=== PATIENT | male | born 1940 | race Caucasian/White ===

== ENCOUNTER 2017-02-13 10:32 | Emergency (ER) | payer OTHER ==
[~2017-02-13] VITALS: Ht 167.6 cm; Wt 78.5 kg
[~2017-02-13 10:32] MED LIST: ASPI81CH8 PO; FINA5TAB PO; LSN5 PO; METO1TAB31 PO; MULT-506 PO; NTRGSL/4 UT; OMEG-112 PO; OMEP20CA9 PO; benadryl
[2017-02-13 10:47] VITALS: TEMP 37; Ht 167.6 cm; Wt 78.5 kg
[2017-02-13] MEDS ORDERED: RANITIDINE HCL 150 MG TAB PO ONE (13:00)
[2017-02-13 13:45] VITALS: BP 157/93; PULSE 59; O2SAT 96
[2017-02-13] MEDS ORDERED: PRED20TA2 PO (13:47)
--- NOTE | 2017-02-15 16:22 | EMERGENCY ROOM VISIT NOTE ---
ED Visit Note First contact with patient: 12:22 Chief Complaint: Itchy rash. History of Present Illness: Mr. Davis is a 76-year-old white male who ambulates into the ED accompanied by his complaining of an itchy rash. Historically patient reports he recently had an abdominal CAT scan with contrast approximately 8 days ago. Patient reports yesterday morning he noted a rash on his legs and since then the rash has spread to his back and abdomen. He contacted his primary care provider who encouraged him to come to the ED for further evaluation and care. Patient reports the rash appeared overnight. He has not identified any aggravating or alleviating factors related to the rash. He reports the rash is itchy. Yesterday he reports taking 1 dose of 50 mg of Benadryl and having mild relief of the itching but it subsequently returned. He has no associated symptoms with his rash including headache, dizziness, lightheadedness, sensations of throat swelling, upper respiratory tract symptoms, cough, wheezing , shortness of breath, abdominal pain, nausea/vomiting, joint pains, fevers, chills. Review of Systems: As noted above in history of present illness. All body systems were reviewed and found to be negative as noted above. Past Medical History: Coronary artery disease with 2 heart attacks, CABG and stent placement, hypertension, unspecified stomach disorder and prostrate cancer. Current Medications: Medications Dose Route/Sig Max Daily Dose Days Date Category Dose Instructions Multivitamin (Multivitamins) Tab 1 Tab PO DAILY 11/30/16 Reported Nitrostat (Nitroglycerin) 0.4 Mg Tab 0.4 Mg UT PRN 11/30/16 Reported Prilosec (Omeprazole) 20 Mg Cap 20 Mg PO DAILY 07/27/14 Reported Lisinopril 5 Mg Tab 5 Mg PO DAILY 07/27/14 Reported [place]-3 (Yzxgf-0-Yvyy Ethyl Esters) 1 Cap Cap 2 Cap PO BID 07/27/14 Reported Toprol Xl (Metoprolol Succinate) 25 Mg Tab 25 Mg PO DAILY 07/27/14 Reported Chewable Aspirin (Aspirin) 81 Mg Chw 81 Mg PO DAILY 12/04/09 Reported Proscar (Finasteride) 5 Mg Tab 5 Mg PO DAILY 12/04/09 Reported Allergies to Medications: Crestor. Social History: Patient is not employed; he lives with his and feels safe in his home environment; he denies tobacco and alcohol use. Physical Examination: Vital Signs: Date Time Temp Pulse Resp B/P (MAP) Pulse Ox O2 Delivery O2 Flow Rate FiO2 02/13/17 13:45 59 20 157/93 96 Room Air 02/13/17 12:04 52 18 155/78 95 Room Air 02/13/17 10:47 37.0 60 16 140/83 93 Room Air GENERAL: 76-year-old male in no acute distress, nontoxic-appearing, afebrile and hemodynamically stable. NEUROLOGICAL: Awake, alert and oriented to person, place and time. Answering questions appropriately and following commands. Normal gait. Good hand eye coordination. No focal motor sensory deficits. SKIN: Warm, dry and pink. Over the abdomen, chest, back and upper lower extremities patient has a large diffuse area of hives. HEENT: Atraumatic and normocephalic. PERRLA. Sclera white and conjunctiva pink. No drainage from naris. Oral cavity moist and pink. Pharynx is nonerythematous or edematous. Airway patent. Speech normal. No lymphadenopathy. Trachea midline. No jugular venous distention. BACK: No tenderness over the bony spine. No CVA tenderness. THORAX: Lungs sounds are clear to auscultation and equal bilaterally with symmetrical chest wall. No wheezing, rales or rhonchi. No crepitus, tenderness , subcutaneous air or deformities noted. HEART: Regular rate and rhythm. No gallops, rubs or murmurs are appreciated. ABDOMEN: Flat, soft and nontender. Positive bowel sounds in all quadrants. No guarding, rigidity or organomegaly. EXTREMITIES: Moves all extremities well on command and with purpose. All distal neurovascular statuses are intact and equal bilaterally. No calf tenderness or cords. ED Course: Patient is assessed as noted above. Patient was given oral dose of 60 mg of prednisone, 50 mg of Benadryl and 150 mg of ranitidine. Patient was observed and started having decreasing sensations of itching and the hives on his abdomen were starting to resolve. Patient's case was reviewed with Dr. Conklin we agreed on diagnostic approach, treatment, disposition and plan. Patient was educated about today's findings and instructed on his treatment plan ; he verbalized understanding and agreement with this plan. Clinical Impression: Hives. Disposition: Patient discharged home in stable condition accompanied by his ; prior to departure he was reassessed and subjectively reported he was feeling better. Plan: Patient was prescribed for additional days of 60 mg of prednisone once a day. Patient was encouraged to use [id number] Benadryl 50 mg every 6 hours and ranitidine 50 mg every 12 hours until resolution of all hives and itching. Patient was encouraged to avoid hot showers/past. Patient was encouraged to follow-up with his family physician for recheck in 3- 4 days and possible referral to rattling machine tender. Patient was encouraged return to the ED for worsening hives, any sensations of throat swelling, sensations or shortness of breath/wheezing or any new/ concerning symptoms.
--- NOTE | 2017-02-15 16:56 | EMERGENCY ROOM VISIT NOTE ---
ED Visit Note First contact with patient: 12:22 I have seen/examined the pt at bedside after discussion with the PA regarding sx presentation and plan of care. Pt well appearing and without complaints. Rash consistent with urticaria and likely allergic reaction. VS stable. Pt with improvement following meds. Discussed f/u, discussion with PCP regarding possible triggers for reaction, symptoms to watch/return for, he and verbalized understanding and were agreeable with plan. No evidence of facial involvement or incr WOB, no stridor/wheezing/tripoding/facial swelling/dysphagia /dyspnea. Rash not consistent with SJS/TEN.
[2017-02-26] MEDS ORDERED: LEUP1INJ15 INJ (19:23)
[2017-02-26] MEDS ORDERED: HYDR-5688 PO (19:25)
[2017-03-19] MEDS ORDERED: TAMS0.4C38 PO (11:04)
== END 2017-02-13 14:00 | disposition home or self-care (01) ==
LOC: C.EDB 10:33 → C.EDC 14:00
DX: L50.9 Urticaria, unspecified (principal); I25.10 Atherosclerotic heart disease of native coronary artery without angina pectoris; I10 Essential (primary) hypertension; I25.2 Old myocardial infarction; Z85.46 Personal history of malignant neoplasm of prostate; Z95.1 Presence of aortocoronary bypass graft; Z98.61 Coronary angioplasty status; Z79.82 Long term (current) use of aspirin; Z79.899 Other long term (current) drug therapy

== ENCOUNTER 2017-02-19 07:20 | Emergency (ER) | payer OTHER ==
[~2017-02-19] VITALS: Ht 167.6 cm; Wt 78.3 kg
[~2017-02-19 07:20] MED LIST changes: +PRED20TA2 PO; -benadryl
[2017-02-19 07:23] VITALS: TEMP 36.7; Ht 167.6 cm; Wt 78.3 kg
[2017-02-19] MEDS ORDERED: MoRPHine SULFATE 4 MG/ML 1 ML CARP\\VIAL IV STA (07:38)
[2017-02-19] MEDS ORDERED: SODIUM CHLORIDE 0.9% 1000ML 1,000 ML IV STA (07:38)
[2017-02-19 07:54] LABS: BASO % 0.1 %; BASO ABS # 0.01 K/uL (0-0.2); COMPLETE YES; EOS % 0.1 %; HEMATOCRIT 46.8 % (42-52); IG% 0.6 %; LYMPH % 12.1 %; LYMPH ABS # 2.09 K/uL (1.2-3.4); MEAN CELL VOLUME 88.3 fL (80-100); MEAN CORPUSCULAR HEMOGLOBIN 31.3 pg (25-34); MEAN CORPUSCULAR HGB CONC 35.5 g/dl (32-36); MEAN PLATELET VOLUME 9.5 fL (7.4-10.4); MONO % 8.7 %; NEUT % 78.4 %; PLATELET COUNT 300 K/uL (130-400); WHITE BLOOD COUNT 17.24 K/uL (4.8-10.8)
[2017-02-19 08:06] LABS: PROTHROMBIN TIME (PATIENT) 11.1 SECONDS (9.0-12.0)
[2017-02-19 08:11] LABS: BUN/CREATININE RATIO 20.1 (10-20); CALCIUM 9.5 mg/dl (8.5-10.1); CREATININE 1.5 mg/dl (0.60-1.40); POTASSIUM 4.1 mmol/L (3.5-5.1)
[2017-02-19 08:13] LABS: URINE APPEARANCE CLEAR (CLEAR); URINE BILIRUBIN NEG (NEG); URINE COLOR DK YELLOW; URINE NITRITE NEG (NEG); URINE SPECIFIC GRAVITY 1.032 (1.000-1.030); UROBILINOGEN NEG (NEG)
[2017-02-19 08:14] LABS: ALB/GLOB RATIO 0.9 (0.9-2); MANUAL MICROSCOPIC REQUIRED? NO; REVIEW REQ? NO; ZZUR CULT IF INDIC CLEAN CATCH NO
--- NOTE | 2017-02-19 08:26 | DIAGNOSTIC IMAGING REPORT ---
ABD/PELVIS NO IV OR ORAL CONT HISTORY:76 yearsMalellq pain, radiation into low left back . History of prostate cancer. COMPARISON: CT pelvis 02/05/2017. TECHNIQUE: Multiple axial CT images of the abdomen and pelvis were obtained without IV contrast. FINDINGS: There is minimal dependent atelectasis. 3 mm noncalcified pulmonary nodule is seen within the right middle lobe on image 1 of series 2. Coronary arterial calcifications are seen with prior median sternotomy and CABG. Symmetric bilateral gynecomastia. No gross pneumoperitoneum. There is heterogeneous attenuation of the liver suggesting geographic fatty infiltration. The spleen is diminutive in size. The gallbladder, pancreas and adrenal glands are unremarkable. There are multiple low attenuating lesions of the kidneys bilaterally, right and left measuring up to 2.5 x 3.2 cm suggesting cysts. There is a 4 mm hyperattenuating lesion of the lateral aspect of the interpolar left kidney suggesting hemorrhagic or proteinaceous cyst. Nonspecific perinephric stranding is present bilaterally. There is mild left-sided obstructive uropathy secondary to a 5 x 4 x 5 mm calculus of the proximal left ureter approximately 3.0 cm distal to the ureteropelvic junction. There is asymmetric left greater than right wall thickening of the urinary bladder lumen. Prostatomegaly is again seen with brachytherapy seeds noted. There is asymmetric prominence of the prostate along the left hemipelvis the region of the seminal vesicles which is unchanged finding. There is moderate atherosclerotic plaquing of the abdominal aorta and its branches. No pathologic adenopathy is identified. There is no bowel obstruction. Colonic diverticulosis without diverticulitis noted. The appendix appears normal. The soft tissues are unremarkable. No suspicious lytic or blastic bony lesions are seen. Multilevel degenerative changes of the spine are seen, notably at L5-S1 where there is 11 mm anterolisthesis with remote pars defects at L5-S1. IMPRESSION: 1. Mild left-sided obstructive uropathy secondary to a 5 x 4 x 5 mm calculus of the proximal left ureter. 2. 3 mm noncalcified pulmonary nodule of the right middle lobe. Non-emergent CT of the chest could be conducted to exclude additional noncalcified pulmonary nodules. 3. Unchanged appearance of prostatomegaly with brachytherapy seeds. 4. Additional incidental findings as above include colonic diverticulosis without diverticulitis. The above report was generated using voice recognition software. It may contain grammatical, syntax or spelling errors. Electronically signed by: Kenny Haji 02/19/2017 8:24 AM Dictated Date/Time: 02/19/2017 8:13 AM
[2017-02-19] MEDS ORDERED: TAMSULOSIN HCL 0.4 MG CAP PO ONE (09:00)
[2017-02-19] MEDS ORDERED: TRAMADOL HCL 50 MG TAB PO STA (09:25)
--- NOTE | 2017-02-19 09:32 | EMERGENCY ROOM VISIT NOTE ---
History Report prepared by Shima: Willy Clifford Under the Supervision of: Dr. Dina Conklin D.O. First contact with patient: 07:27 Chief Complaint: ABDOMINAL PAIN Stated Complaint: PAIN ON LEFT SIDE Nursing Triage Summary: triage note: pt reports left lower abd pain since yesterday. History of Present Illness The patient is a 76 year old male who presents to the Emergency Room with complaints of constant lower abdominal pain beginning yesterday. He also complains of pain radiating into his back. He denies any diarrhea, nausea, vomiting, chills, fever, chest pain, SOB, rashes, or bloody stool. The patient states that his pain seems to improve with warm water over the area. He has no history of similar symptoms. The patient was seen in the ED six day ago for an abdominal rash. He states that his rash has completely resolved. He notes that he has a history of prostate cancer, and has been preparing for radiation treatments. Is not currently getting chemotherapy. He has noticed some blood in his urine recently, but attributes this to his prostate. Source of History: patient Onset: Yesterday Position: abdomen (lower) Timing: constant Modifying Factors (Relieving): other (warm water) Associated Symptoms: + back pain, No fevers, No chills, No chest pain, No SOB, No nausea, No vomiting, No hematochezia, No diarrhea, No rash Review of Systems See HPI for pertinent positives & negatives. A total of 10 systems reviewed and were otherwise negative. Past Medical & Surgical Medical Problems: (1) Diarrhea (2) Indigestion (3) Laceration of thumb, left, complicated (4) Prostate cancer Family History No pertinent family history stated. Social History Smoking Status: Never Smoker Drug Use: none Marital Status: Housing Status: lives with family Current/Historical Medications Scheduled Aspirin (Chewable Aspirin), 81 MG PO DAILY Finasteride (Proscar), 5 MG PO DAILY Lisinopril (Lisinopril), 5 MG PO DAILY Metoprolol Succinate (Toprol Xl), 25 MG PO DAILY Multivitamin (Multivitamin), 1 TAB PO DAILY Nitroglycerin (Nitrostat), 0.4 MG UT PRN [place]-2-Qqre Ethyl Esters ([place]-3), 2 CAP PO BID Omeprazole (Prilosec), 20 MG PO DAILY Ondasetron Odt (Zofran Odt), 4 MG SL Q6H Tamsulosin Hcl (Flomax), 0.4 MG PO DAILY Scheduled PRN Tramadol (Ultram), 1-2 TABS PO Q6 PRN for Pain Allergies Coded Allergies: Statins (Verified Adverse Reaction, Intermediate, MYALGIA, 02/19/17) Physical Exam Vital Signs Date Time Temp Pulse Resp B/P (MAP) Pulse Ox O2 Delivery O2 Flow Rate FiO2 02/19/17 09:52 62 18 143/85 94 02/19/17 09:01 58 18 178/86 95 Room Air 02/19/17 07:23 36.7 63 18 198/101 94 Room Air Physical Exam GENERAL: alert, well appearing, well nourished, no distress, non-toxic EYE EXAM: normal conjunctiva, PERRL and EOM's grossly intact OROPHARYNX: no exudate, no erythema, lips, buccal mucosa, and tongue normal and mucous membranes are moist NECK: supple, no nuchal rigidity, no adenopathy, non-tender LUNGS: Clear to auscultation. Normal chest wall mechanics HEART: no murmurs, S1 normal and S2 normal ABDOMEN: abdomen soft, non-tender, normo-active bowel sounds, no masses, no rebound or guarding. BACK: Back is symmetrical on inspection and there is no deformity, no midline tenderness, no CVA tenderness. SKIN: no rashes and no bruising UPPER EXTREMITIES: upper extremities are grossly normal. LOWER EXTREMITIES: No pitting edema. NEURO EXAM: Normal sensorium, cranial nerves II-XII grossly intact, normal speech, no gross weakness of arms, no gross weakness of legs. Medical Decision & Procedures ER Provider Diagnostic Interpretation: CT: Per my review, radiologist interpretation. ABD/PELVIS NO IV OR ORAL CONT FINDINGS: There is minimal dependent atelectasis. 3 mm noncalcified pulmonary nodule is seen within the right middle lobe on image 1 of series 2. Coronary arterial calcifications are seen with prior median sternotomy and CABG. Symmetric bilateral gynecomastia. No gross pneumoperitoneum. There is heterogeneous attenuation of the liver suggesting geographic fatty infiltration. The spleen is diminutive in size. The gallbladder, pancreas and adrenal glands are unremarkable. There are multiple low attenuating lesions of the kidneys bilaterally, right and left measuring up to 2.5 x 3.2 cm suggesting cysts. There is a 4 mm hyperattenuating lesion of the lateral aspect of the interpolar left kidney suggesting hemorrhagic or proteinaceous cyst. Nonspecific perinephric stranding is present bilaterally. There is mild left-sided obstructive uropathy secondary to a 5 x 4 x 5 mm calculus of the proximal left ureter approximately 3.0 cm distal to the ureteropelvic junction. There is asymmetric left greater than right wall thickening of the urinary bladder lumen. Prostatomegaly is again seen with brachytherapy seeds noted. There is asymmetric prominence of the prostate along the left hemipelvis the region of the seminal vesicles which is unchanged finding. There is moderate atherosclerotic plaquing of the abdominal aorta and its branches. No pathologic adenopathy is identified. There is no bowel obstruction. Colonic diverticulosis without diverticulitis noted. The appendix appears normal. The soft tissues are unremarkable. No suspicious lytic or blastic bony lesions are seen. Multilevel degenerative changes of the spine are seen, notably at L5-S1 where there is 11 mm anterolisthesis with remote pars defects at L5-S1. IMPRESSION: 1. Mild left-sided obstructive uropathy secondary to a 5 x 4 x 5 mm calculus of the proximal left ureter. 2. 3 mm noncalcified pulmonary nodule of the right middle lobe. Non-emergent CT of the chest could be conducted to exclude additional noncalcified pulmonary nodules. 3. Unchanged appearance of prostatomegaly with brachytherapy seeds. 4. Additional incidental findings as above include colonic diverticulosis without diverticulitis. The above report was generated using voice recognition software. It may contain grammatical, syntax or spelling errors. Electronically signed by: Kenny Haji Laboratory Results 02/19/17 07:45 Red Blood Count 5.30, Mean Corpuscular Volume 88.3, Mean Corpuscular Hemoglobin 31.3, Mean Corpuscular Hemoglobin Concent 35.5, Mean Platelet Volume 9.5, Neutrophils (%) (Auto) 78.4, Lymphocytes (%) (Auto) 12.1, Monocytes (%) (Auto) 8.7, Eosinophils (%) (Auto) 0.1, Basophils (%) (Auto) 0.1, Neutrophils # (Auto) 13.52, Lymphocytes # (Auto) 2.09, Monocytes # (Auto) 1.50, Eosinophils # (Auto) 0.01, Basophils # (Auto) 0.01 02/19/17 07:45 Test 02/19/17 07:45 White Blood Count 17.24 K/uL (4.8-10.8) Red Blood Count 5.30 M/uL (4.7-6.1) Hemoglobin 16.6 g/dL (14.0-18.0) Hematocrit 46.8 % (42-52) Mean Corpuscular Volume 88.3 fL (80-100) Mean Corpuscular Hemoglobin 31.3 pg (25-34) Mean Corpuscular Hemoglobin Concent 35.5 g/dl (32-36) Platelet Count 300 K/uL (130-400) Mean Platelet Volume 9.5 fL (7.4-10.4) Neutrophils (%) (Auto) 78.4 % Lymphocytes (%) (Auto) 12.1 % Monocytes (%) (Auto) 8.7 % Eosinophils (%) (Auto) 0.1 % Basophils (%) (Auto) 0.1 % Neutrophils # (Auto) 13.52 K/uL (1.4-6.5) Lymphocytes # (Auto) 2.09 K/uL (1.2-3.4) Monocytes # (Auto) 1.50 K/uL (0.11-0.59) Eosinophils # (Auto) 0.01 K/uL (0-0.5) Basophils # (Auto) 0.01 K/uL (0-0.2) RDW Standard Deviation 42.3 fL (36.4-46.3) RDW Coefficient of Variation 13.1 % (11.5-14.5) Immature Granulocyte % (Auto) 0.6 % Immature Granulocyte # (Auto) 0.11 K/uL (0.00-0.02) Prothrombin Time 11.1 SECONDS (9.0-12.0) Prothromb Time International Ratio 1.0 (0.9-1.1) Urine Color DK YELLOW Urine Appearance CLEAR (CLEAR) Urine pH 5.0 (4.5-7.5) Urine Specific [place] 1.032 (1.000-1.030) Urine Protein 2+ (NEG) Urine Glucose (UA) NEG (NEG) Urine Ketones TRACE (NEG) Urine Occult Blood 3+ (NEG) Urine Nitrite NEG (NEG) Urine Bilirubin NEG (NEG) Urine Urobilinogen NEG (NEG) Urine Leukocyte Esterase NEG (NEG) Urine WBC (Auto) 1-5 /hpf (0-5) Urine RBC (Auto) >30 /hpf (0-4) Urine Hyaline Casts (Auto) 5-10 /lpf (0-5) Urine Epithelial Cells (Auto) 10-20 /lpf (0-5) Urine Bacteria (Auto) NEG (NEG) Anion Gap 9.0 mmol/L (3-11) Est Creatinine Clear Calc Drug Dose 39.9 ml/min Estimated GFR () 51.0 Estimated GFR (Non- 44.0 BUN/Creatinine Ratio 20.1 (10-20) Calcium Level 9.5 mg/dl (8.5-10.1) Total Bilirubin 0.7 mg/dl (0.2-1) Aspartate Amino Transf (AST/SGOT) 39 U/L (15-37) Alanine Aminotransferase (ALT/SGPT) 94 U/L (12-78) Alkaline Phosphatase 77 U/L (45-117) Total Protein 7.8 gm/dl (6.4-8.2) Albumin 3.6 gm/dl (3.4-5.0) Globulin 4.2 gm/dl (2.5-4.0) Albumin/Globulin Ratio 0.9 (0.9-2) Laboratory results per my review. Medications Administered Medications (Trade) Dose Ordered Sig/Yudelka Route Start Time Stop Time Status Last Admin Dose Admin Sodium Chloride 1,000 ml @ 250 mls/hr Q4H STAT IV 02/19/17 07:38 02/19/17 10:01 DC 02/19/17 08:00 250 MLS/HR Morphine Sulfate (MoRPHine SULFATE INJ) 4 mg NOW STAT IV 02/19/17 07:38 02/19/17 07:46 DC 02/19/17 08:00 4 MG Tamsulosin HCl (Flomax Cap) 0.4 mg NOW ONCE PO 02/19/17 09:00 02/19/17 09:01 DC 02/19/17 08:59 0.4 MG Tramadol HCl (Ultram Tab) 50 mg NOW STAT PO 02/19/17 09:25 02/19/17 09:27 DC 02/19/17 09:38 50 MG ED Course 0729: The patient was evaluated in room B7. A complete history and physical exam was performed. 0738: Ordered Morphine Sulfate 4 mg IV, Sodium Chloride 1000 ml @ 250 mls/hr IV. 09: Ordered Flomax Cap 0.4 mg PO. 908: Upon reevaluation, the patient is feeling better. I discussed the findings and the treatment plan with the patient. He verbalizes agreement and understanding. The patient was discharged home. 924: Ordered Ultram Tab 50 mg PO. Medical Decision Differential diagnosis: Etiologies such as appendicitis, diverticulitis, PUD, biliary pathology, UTI, pancreatitis, obstruction, mesenteric ischemia, aortic pathology, infections, inflammatory bowel disease, renal colic, as well as others were entertained. Blood pressure screening: Patient was found to have an elevated blood pressure and was referred to their primary doctor for recheck and further treatment. Medication Reconciliation: I attest that I have personally reviewed the patient' s current medication list. Patient well-appearing here and pain controlled. Vital signs stable. No evidence of bacteremia/sepsis. Creatinine mildly abnormal 1.5, likely secondary to dehydration and kidney stone. Discussed with patient follow-up with urology, need for recheck of creatinine as a precaution, use of medications. No evidence of concurrent infection. No evidence of additional GI or vascular pathology. Patient reliable and agreeable with plan, all questions answered bedside, discussed symptoms to watch and return for, use of medications, he verbalized understanding was agreeable with plan. Impression Primary Impression: Left lower quadrant pain Additional Impressions: Ureterolithiasis Renal insufficiency Hematuria Scribe Attestation The scribe's documentation has been prepared under my direction and personally reviewed by me in its entirety. I confirm that the note above accurately reflects all work, treatment, procedures, and medical decision making performed by me. Departure Information Dispostion Home / Self-Care Prescriptions Tamsulosin Hcl (FLOMAX) 0.4 Mg Cap 0.4 MG PO DAILY, #10 CAP Prov: Dina Conklin, DO 02/19/17 Tramadol (Ultram) 50 Mg Tab 1-2 TABS PO Q6 Y for Pain, #14 TAB Prov: Dina Conklin, DO 02/19/17 Ondasetron Odt (ZOFRAN ODT) 4 Mg Tab 4 MG SL Q6H for Nausea, #6 TAB Prov: Dina Conklin, DO 02/19/17 Referrals Sulman,Zbigniew A., D.O. (PCP) Patient Instructions [facility] Additional Instructions Please: Follow up with your urologist. Please let them to the findings of today. Please continue regular medications as prescribed. You may use the pain and nausea medications as needed. Please make sure you're drinking plenty of water. Please monitor for constipation which is a common side effect of pain medications. Please take the Flomax daily until he passed the kidney stone , and strain your urine to monitor for passage of the stone. If you have any worsening pain, develop vomiting, fevers, see gross blood in your urine, are unable to urinate, or you have any other new or concerning symptoms, please return the emergency room. Your kidney function number, creatinine, today was mildly elevated at 1.5. Please have your doctor recheck this. Your white blood cell count was elevated at 17 as well, this needs to be rechecked also. Your urine was sent for culture as a precaution. Problem Qualifiers Additional Impressions: Hematuria Hematuria type: unspecified type Qualified Codes: R31.9 - Hematuria, unspecified
[2017-02-19] MEDS ORDERED: ONDA4TAB10 SL (09:36)
[2017-02-19] MEDS ORDERED: TAMS0.4C38 PO (09:36)
[2017-02-19] MEDS ORDERED: TRAM-10 PO (09:36)
[2017-02-19 09:52] VITALS: BP 143/85; PULSE 62; O2SAT 94
[2017-02-26] MEDS ORDERED: LEUP1INJ15 INJ (19:23)
[2017-02-26] MEDS ORDERED: HYDR-5688 PO (19:25)
[2017-03-19] MEDS ORDERED: TAMS0.4C38 PO (11:04)
== END 2017-02-19 09:54 | disposition home or self-care (01) ==
LOC: C.EDB 07:21
DX: R10.32 Left lower quadrant pain (principal); N20.1 Calculus of ureter; N28.9 Disorder of kidney and ureter, unspecified; R31.9 Hematuria, unspecified; Z85.46 Personal history of malignant neoplasm of prostate; Z79.82 Long term (current) use of aspirin; Z79.899 Other long term (current) drug therapy

== ENCOUNTER → 2017-03-20 | Outpatient (CLI) | payer OTHER ==
[~2017-03-20] MED LIST changes: +HYDR-5688 PO; +LEUP1INJ15 INJ; +ONDA4TAB10 SL; -PRED20TA2 PO; +TAMS0.4C38 PO; +TRAM-10 PO
--- NOTE | 2017-03-20 13:01 | DIAGNOSTIC IMAGING REPORT ---
(CHEST) THORAX WITHOUT CLINICAL HISTORY: Pulmonary nodule. Follow-up study. COMPARISON STUDY: Abdominal pelvic CT scan dated 02/19/2017 CT DOSE: 495.10 mGycm TECHNIQUE: CT of the thorax was performed from the thoracic inlet to the lung bases. Images are reviewed in the axial, sagittal, and coronal planes. IV contrast was not administered for this examination. A dose lowering technique was utilized adhering to the principles of ALARA. FINDINGS: Thyroid: Imaged portions of the thyroid gland are normal in appearance. Thoracic aorta: The thoracic aorta is normal in course and caliber, noting standard 3 vessel arch anatomy. Heart: There are coronary artery calcifications present. There are postsurgical changes of a midline sternotomy. Lungs and pleural spaces: No pleural effusions are visualized. There are innumerable bilateral tiny solid pulmonary nodules, the largest of which is located within the right lower lobe measuring 4 mm. Mediastinum: There are borderline enlarged mediastinal lymph nodes measuring up to 1 cm in short axis. Ashlie: There is no evidence of pathologic hilar adenopathy given the limitations of a noncontrast study Axilla: Clear. Upper abdomen: There is a partially visualized upper pole right renal cyst. Skeletal structures: There are no lytic or blastic osseous lesions. IMPRESSION: 1. Multiple bilateral tiny solid pulmonary nodules, the largest of which is located within the right lower lobe measuring 4 mm. A low risk patient, no further follow-up is deemed indicated. In a high risk patient, a 12 month follow-up is optional 2. Borderline enlarged mediastinal lymph nodes 3. No evidence of focal pulmonary consolidation Please refer to below summary of Fleischner criteria recommendations for follow-up of incidental CT nodules (Remy Arzate, Guidelines for management of small pulmonary nodules detected on CT scans: A statement from the Fleischner Society, Radiology 237: [phone].) SOLID NODULES Solitary nodule size: <6 mm * low risk patients: no follow-up needed * high risk patients: optional CT at 12 months Solitary nodule size: 6-8 mm * low risk patients: follow-up at 6-12 months, then consider further follow-up at 18-24 months * high risk patients: initial follow-up CT at 6-12 months and then at 18-24 months if no change Solitary nodule size: >8 mm * either low or high risk patients - consider follow-up CT at 3 months, and/or CT-PET, and/or biopsy Multiple nodules size: <6 mm * low risk patients: no routine follow-up * high risk patients: optional CT at 12 months Multiple nodules size: 6-8 mm * low risk patients: follow-up at 3-6 months, then consider further follow-up at 18-24 months * high risk patients: follow-up at 3-6 months, then at 18-24 months if no change Multiple nodules size: >8 mm * low risk patients: follow-up at 3-6 months, then consider further follow-up at 18-24 months * high risk patients: follow-up at 3-6 months, then at 18-24 months if no change Note: newly detected indeterminate nodule in persons 35 years of age or older. * low risk patients: minimal or absent history of smoking and/or other known risk factors * high risk patients: history of smoking or of other known risk factors (e.g. first degree relative with lung cancer, or exposure to asbestos, radon, uranium) * if a nodule up to 8 mm is partly solid or is ground glass further follow-up is required after 24 months to exclude possible slow growing adenocarcinoma (EFRAIN) SUBSOLID NODULES Solitary pure ground-glass nodule * nodule size <6 mm - no CT follow-up required * nodule size >=6 mm - follow-up CT at 6-12 months, then every 2 years until 5 years Solitary part-solid nodule * nodule size <6 mm - no CT follow-up required * nodule size >=6 mm - follow-up CT at 3-6 months. If unchanged, and solid component remains <6 mm, then annual follow-up for 5 years Multiple subsolid nodules * nodule size <6 mm - follow-up CT at 3-6 months, consider further follow-up at 2 and 4 years if stable * nodule size >=6 mm - follow-up CT at 3-6 months, subsequent management based on the most suspicious nodule(s) Electronically signed by: Carlos Sarkar M.D. 03/20/2017 12:59 PM Dictated Date/Time: 03/20/2017 12:52 PM
== END | disposition home or self-care (01) ==
LOC: C.CTS 12:24
PROVIDERS: ATTEND Internal Medicine
DX: R91.8 Other nonspecific abnormal finding of lung field (principal)

== ENCOUNTER → 2017-05-30 | Outpatient (CLI) | payer OTHER ==
[~2017-05-30] MED LIST changes: +METO-478 PO; -METO1TAB31 PO
[2017-05-30 14:48] VITALS: BP 143/74; PULSE 59; TEMP 36.5; O2SAT 96
--- NOTE | 2017-05-30 16:33 | Radiation Oncology Follow-Up ---
Radiation Oncology Follow-Up Date of Visit May 30, 2017. Reason For Visit One-month follow-up and cancer survivorship care plan Radiation Completion Date 04/23/17 Diagnosis (1) Prostate cancer Status: Acute Onset Date: 08/30/2016 Location: both lobes of the prostate Histology Subtype: adenocarcinoma Stage: lll Permanent Comment: History of benign prostatic hypertrophy and elevated PSA Status post ultrasound-guided biopsy 09/14/2006, benign Status post ultrasound-guided biopsy 03/25/2007, benign Continued rise in PSA, pretreatment PSA 34.49 Status post ultrasound-guided biopsy 08/20/2016 Adenocarcinoma with Aminata 3+3 and 3+4 MRI 11/15/2016 showing extracapsular extension Prostate volume 111 Prostate density is 0.310 Initiation of hormone suppression 12/01/2016 22.5 mg IM Lupron 45 mg IM on 03/22/2017 plan for a total 28 months Status post completion of IMRT/IGRT VMAT on 04/23/2017. He received 7740 cGy. Last Edited By: Araseli Johnston on Apr 30, 2017 13:47 History of Present Illness Mr. Davis initially presented with an elevated PSA in June 2006 that was 12.38. The patient continue to have elevated PSAs that range from 8.04 to 15.09 between June 2006 and November 2012. The patient did have a biopsy in March [address] Jenkins which did not reveal any evidence of prostate cancer. The patient has been followed by Dr. Sanford since Dr. Jenkins left. The patient' s PSA in June 2015 was 25.18. The patient underwent a transrectal ultrasound-guided biopsy on 08/30/2015 which revealed prostate adenocarcinoma involving 3/21 cores; [place] 3+3 and Aminata 3+4 prostate adenocarcinoma were identified. At this point, the decision was made to continue with active surveillance and the patient had a repeat PSA on 08/25/2016 which revealed a PSA of 34.49. Dr. Sanford ordered a bone scan for the patient on 09/15/2016 which revealed only mild asymmetric increased activity in the right femur which favors an inflammatory process. He underwent a bilateral hip and femoral x-ray series on 09/21/2016 which revealed no evidence of lytic lesions consistent with metastatic prostate cancer. Dr. 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 The prostate gland was measured to be 111 cc by the MRI. There is no evidence of any pelvic lymph nodes. Dr. Sanford has recommended treatment and discuss treatment options including surgery and radiation therapy. After long discussion, the patient would prefer to undergo radiation therapy. We are now seeing the patient in consultation. The options of treatment were reviewed with the patient. Ultimately he made a decision to have external beam therapy. He first Had a Lupron injection on 12/01/2016. This was given by our office 22.5 mg IM. The plan is to continue hormone suppression for a total of 28 months. He received Lupron 45 mg IM on 03/22/2017. He then had gold fiducial markers placed at Dr. Sanford office. He had a CT simulation and then received radiation Therapy with IMRT/IGRT VMAT. He received 7740 cGy. this was completed 2016. Interim History He has been doing well over the past month from urinary standpoint. His AUA score was 4. He does continue on tamsulosin once daily. He completed expanded prostate cancer index composite for clinical practice and gave a score of one of 12 and urinary incontinence symptoms. He gave a score of one of 12 and urinary irritation symptoms. He gave a score of 0 of 12 and bowel symptoms. He gave a score of 8 of 12 in sexual symptoms. He gave a score of 2 of 12 and hormonal vitality symptoms. His total was 12 of 60. Allergies Coded Allergies: Statins (Verified Adverse Reaction, Intermediate, MYALGIA, 02/19/17) Home Medications Scheduled Aspirin (Chewable Aspirin), 81 MG PO DAILY Finasteride (Proscar), 5 MG PO DAILY Lisinopril (Lisinopril), 5 MG PO DAILY Metoprolol Succinate (Toprol Xl), 25 MG PO DAILY Multivitamin (Multivitamin), 1 TAB PO DAILY Nitroglycerin (Nitrostat), 0.4 MG UT PRN [id number]-[id number] Ethyl Esters ([place]-3), 2 CAP PO BID Omeprazole (Prilosec), 20 MG PO DAILY Ondasetron Odt (Zofran Odt), 4 MG SL Q6H Tamsulosin Hcl (Flomax), 1 CAP PO DAILY Scheduled PRN Hydrocodone/Acetaminophen 5MG/325MG ([place] 5MG/325MG), 1 TABLET PO Q6 PRN for Pain Tramadol (Ultram), 1-2 TABS PO Q6 PRN for Pain Miscellaneous Medications Leuprolide Acetate (Lupron [place]), 22.5 MG INJ Review of Systems Gastrointestinal: Symptoms: WNL GI Comments: Diarrhea for a day or two Oral: Symptoms: No Problems Respiratory: Symptoms: WNL Other Respiratory: Chronic Cough Urinary: Symptoms: WNL, Nocturia Comments: Nocturia x 1, see aua & epic Skin: Symptoms: No Problems Additional Notes: He completed a distress management report and answered "no" to all questions. Physical Exam Vital Signs Date Time Temp Pulse Resp B/P (MAP) Pulse Ox O2 Delivery O2 Flow Rate FiO2 05/30/17 14:48 36.5 59 16 143/74 96 Fatigue: None General Appearance: no apparent distress Eyes: normal inspection, EOMI ENT: normal ENT inspection, hearing grossly normal Respiratory/Chest: lungs clear, no respiratory distress, no accessory muscle use Cardiovascular: regular rate, rhythm, no gallop, no murmur Abdomen: non tender, soft Extremities: no pedal edema Neurologic/Psychiatric: no motor/sensory deficits, alert, normal mood/affect Skin: warm/dry Laboratory Studies Test 05/30/17 15:15 Prostate Specific Antigen 0.596 ng/ml (0.000-4.000) Assessment & Plan Plan: Continue regular follow-up with urology and his primary care physician. He is due for his next Lupron in September. We'll plan to see him in follow-up and give another injection. This will be 45 mg. The PSA was drawn today. He' ll be notified as to results. Today we completed a cancer survivorship care plan. A copy of the document was given to the patient. He was also given a survivorship booklet. We will advise him to take calcium and vitamin D. He'll be able to begin to taper the tamsulosin. He was also seen today by Dr. Lang. Assessment & Plan (Attending) ADDENDUM: I agree with note created by Araseli Johnston PA-C. I reviewed the patient's chart and information with her. I have examined and evaluated the patient. I reviewed relevant clinical information and answered the patient's and /or family's questions. WEBSPHERE ARCHITECT Total Time In Follow-Up I spent 20 minutes speaking to the patient and performing examination. I spent 20 minutes reviewing information, preparing the survivorship document, and completing this note. Total Time (Attending) In Follow-Up I spent 15 minutes examining and counseling the patient. WEBSPHERE ARCHITECT Copy To Taryn Sanford MD; Zbigniew Caceres D.O.
== END | disposition home or self-care (01) ==
LOC: C.ONC 14:31
PROVIDERS: ATTEND Physician Assistant Medical
DX: Z08 Encounter for follow-up examination after completed treatment for malignant neoplasm (principal); Z92.3 Personal history of irradiation; Z85.46 Personal history of malignant neoplasm of prostate

== ENCOUNTER → 2017-09-25 | Outpatient (CLI) | payer OTHER ==
[~2017-09-25] MED LIST changes: +LEUPROLIDE ACETATE 45 MG IM ONE; -ONDA4TAB10 SL; -TRAM-10 PO
[2017-09-25 14:32] VITALS: BP 121/73; PULSE 64; TEMP 37; O2SAT 96
--- NOTE | 2017-09-25 15:50 | Radiation Oncology Follow-Up ---
Radiation Oncology Follow-Up Date of Visit Sep 25, 2017. Reason For Visit 6 month follow-up and Lupron injection Radiation Completion Date Hormone therapy;IMRT 04/23/17 Diagnosis (1) Prostate cancer Status: Acute Onset Date: 08/30/2016 Location: both lobes of the prostate Histology Subtype: adenocarcinoma Stage: lll Permanent Comment: History of benign prostatic hypertrophy and elevated PSA Status post ultrasound-guided biopsy 09/14/2006, benign Status post ultrasound-guided biopsy 03/25/2007, benign Continued rise in PSA, pretreatment PSA 34.49 Status post ultrasound-guided biopsy 08/20/2016 Adenocarcinoma with [place] 3+3 and 3+4 MRI 11/15/2016 showing extracapsular extension Prostate volume 111 Prostate density is 0.310 Initiation of hormone suppression 12/01/2016 22.5 mg IM Lupron 45 mg IM on 03/22/2017 plan for a total 28 months Status post completion of IMRT/IGRT VMAT on 04/23/2017. He received 7740 cGy. Last Edited By: Araseli Johnston on Apr 30, 2017 13:47 History of Present Illness Mr. Davis initially presented with an elevated PSA in June 2006 that was 12.38. The patient continue to have elevated PSAs that range from 8.04 to 15.09 between June 2006 and November 2012. The patient did have a biopsy in March [address] Jenkins which did not reveal any evidence of prostate cancer. The patient has been followed by Dr. Sanford since Dr. Jenkins left. The patient' s PSA in June 2015 was 25.18. The patient underwent a transrectal ultrasound-guided biopsy on 08/30/2015 which revealed prostate adenocarcinoma involving 3/21 cores; Aminata 3+3 and Aminata 3+4 prostate adenocarcinoma were identified. At this point, the decision was made to continue with active surveillance and the patient had a repeat PSA on 08/25/2016 which revealed a PSA of 34.49. Dr. Sanford ordered a bone scan for the patient on 09/15/2016 which revealed only mild asymmetric increased activity in the right femur which favors an inflammatory process. He underwent a bilateral hip and femoral x-ray series on 09/21/2016 which revealed no evidence of lytic lesions consistent with metastatic prostate cancer. Dr. 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 The prostate gland was measured to be 111 cc by the MRI. There is no evidence of any pelvic lymph nodes. Dr. Sanford has recommended treatment and discuss treatment options including surgery and radiation therapy. After long discussion, the patient would prefer to undergo radiation therapy. We are now seeing the patient in consultation. The options of treatment were reviewed with the patient. Ultimately he made a decision to have external beam therapy. He first Had a Lupron injection on 12/01/2016. This was given by our office 22.5 mg IM. The plan is to continue hormone suppression for a total of 28 months. He received Lupron 45 mg IM on 03/22/2017. He then had gold fiducial markers placed at Dr. Sanford office. He had a CT simulation and then received radiation Therapy with IMRT/IGRT VMAT. He received 7740 cGy. this was completed 2016. Interim History He's been doing well over the past 6 months from urinary standpoint. Today he gave an AUA score of 3. He had previously been on tamsulosin. He is weaned off the medication. He was able to completely discontinue the medication in July. He denies any change in urination. He completed and expanded prostate cancer index composite for clinical practice and gave a score of 2 of 12 and urinary incontinence symptoms. He gave a score of one of 12 urinary irritation symptoms. He gave a score of 0 of 12 bowel symptoms. He gave a score of 8 of 12 and sexual symptoms. He gave a score of 3 of 12 and hormonal vitality symptoms. His total was 14 of 60. He does have hot flashes associated with the hormone suppression. He had a PSA at his one-month visit and that was 0.596. This was improved from his PSA of 08/25/2016 at 34.49. Allergies Coded Allergies: Statins (Verified Adverse Reaction, Intermediate, MYALGIA, 02/19/17) Home Medications Scheduled Aspirin (Chewable Aspirin), 81 MG PO DAILY Finasteride (Proscar), 5 MG PO DAILY Lisinopril (Lisinopril), 5 MG PO DAILY Metoprolol Succinate (Toprol Xl), 25 MG PO DAILY Multivitamin (Multivitamin), 1 TAB PO DAILY Nitroglycerin (Nitrostat), 0.4 MG UT PRN Jnsun-[id number] Ethyl Esters ([place]-3), 2 CAP PO BID Omeprazole (Prilosec), 20 MG PO DAILY Review of Systems Gastrointestinal: Symptoms: WNL GI Comments: No fiber supplements Oral: Symptoms: No Problems Respiratory: Symptoms: Dry Cough Other Respiratory: That he relates to a recent cold; Urinary: Comments: Doesn't ignore urge to void;1-2 voids/night; Skin: Symptoms: No Problems Physical Exam Vital Signs Date Time Temp Pulse Resp B/P (MAP) Pulse Ox O2 Delivery O2 Flow Rate FiO2 09/25/17 14:32 37.0 64 16 121/73 96 Fatigue: None General Appearance: no apparent distress Eyes: normal inspection, EOMI ENT: normal ENT inspection, hearing grossly normal Respiratory/Chest: lungs clear, no respiratory distress, no accessory muscle use Cardiovascular: regular rate, rhythm, no gallop, no murmur Extremities: no pedal edema Neurologic/Psychiatric: no motor/sensory deficits, alert, normal mood/affect Skin: warm/dry Pain Management Patient Reports Pain: No Pain Management Plan He denied pain therefore requires no pain management. Laboratory Laboratory Results: were reviewed, and pertinent findings noted below Laboratory Comments: PSA drawn today is pending. Pathology Pathology Results: not applicable Imaging Imaging Studies: not applicable Assessment & Plan Plan: He was also seen today by Dr. Lang. The PSA was drawn and he'll be notified as to the results. He is now off of tamsulosin. He was given a Lupron injection today. This was 45 mg IM. We did discuss the side effects of hot flashes. He is taking vitamin E. We discussed possibly adding Effexor. She did not wish to add another medication at this time. He will keep this in mind should he feel the hot flashes are becoming more bothersome. We asked him to return to our office in 6 months. At that time he'll receive another Lupron injection. He may call our office if he has any questions or concerns in the interim. Assessment & Plan (Attending) I agree with note created by Araseli Johnston PA-C. I reviewed the patient's chart and information with her. I have examined and evaluated the patient. I reviewed relevant clinical information and answered the patient's and/or family' s questions. DAY CARE HOME MOTHER Total Time In Follow-Up I spent 20 minutes speaking to the patient and performing examination. I spent 15 minutes reviewing information completing this note. [place] Total Time (Attending) In Follow-Up I spent 15 minutes examining and counseling the patient. DAY CARE HOME MOTHER Copy To Taryn Sanford MD; Zbigniew Caceres D.O.
== END | disposition home or self-care (01) ==
LOC: C.ONC 14:22
PROVIDERS: ATTEND Physician Assistant Medical
DX: Z08 Encounter for follow-up examination after completed treatment for malignant neoplasm (principal); Z92.3 Personal history of irradiation; Z85.46 Personal history of malignant neoplasm of prostate

== ENCOUNTER → 2018-03-26 | Outpatient (CLI) | payer OTHER ==
[~2018-03-26] MED LIST changes: +ASPI1CHW19 PO; -ASPI81CH8 PO; -HYDR-5688 PO; -LEUP1INJ15 INJ; +LEUPROLIDE ACETATE 45 MG IM SCH; +LISI-730 PO; -LSN5 PO; -TAMS0.4C38 PO
[2018-03-26 13:50] VITALS: BP 137/75; PULSE 58; TEMP 36.6; O2SAT 93
--- NOTE | 2018-03-26 14:48 | Radiation Oncology Follow-Up ---
Radiation Oncology Follow-Up Date of Visit Mar 26, 2018. Reason For Visit Six-month follow-up. Radiation Completion Date 04/23/17 Diagnosis (1) Prostate cancer Status: Acute Onset Date: 08/30/2016 Permanent Comment: History of benign prostatic hypertrophy and elevated PSA Status post ultrasound-guided biopsy 09/14/2006, benign Status post ultrasound-guided biopsy 03/25/2007, benign Continued rise in PSA, pretreatment PSA 34.49 Status post ultrasound-guided biopsy 08/20/2016 Adenocarcinoma with [place] 3+3 and 3+4 MRI 11/15/2016 showing extracapsular extension Prostate volume 111 Prostate density is 0.310 Initiation of hormone suppression 12/01/2016 22.5 mg IM Lupron 45 mg IM on 03/22/2017 plan for a total 28 months Lupron 45 mg IM on 09/25/2017 Status post completion of IMRT/IGRT VMAT on 04/23/2017. He received 7740 cGy. Lupron 45 mg IM on 03/26/2018 Last Edited By: Araseli Johnston on Mar 26, 2018 14:48 History of Present Illness Mr. Davis initially presented with an elevated PSA in June 2006 that was 12.38. The patient continue to have elevated PSAs that range from 8.04 to 15.09 between June 2006 and November 2012. The patient did have a biopsy in March [address] Jenkins which did not reveal any evidence of prostate cancer. The patient has been followed by Dr. Sanford since Dr. Jenkins left. The patient' s PSA in June 2015 was 25.18. The patient underwent a transrectal ultrasound-guided biopsy on 08/30/2015 which revealed prostate adenocarcinoma involving 3/21 cores; [place] 3+3 and [place] 3+4 prostate adenocarcinoma were identified. At this point, the decision was made to continue with active surveillance and the patient had a repeat PSA on 08/25/2016 which revealed a PSA of 34.49. Dr. Sanford ordered a bone scan for the patient on 09/15/2016 which revealed only mild asymmetric increased activity in the right femur which favors an inflammatory process. He underwent a bilateral hip and femoral x-ray series on 09/21/2016 which revealed no evidence of lytic lesions consistent with metastatic prostate cancer. Dr. 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 The prostate gland was measured to be 111 cc by the MRI. There is no evidence of any pelvic lymph nodes. Dr. Sanford has recommended treatment and discuss treatment options including surgery and radiation therapy. After long discussion, the patient would prefer to undergo radiation therapy. We are now seeing the patient in consultation. The options of treatment were reviewed with the patient. Ultimately he made a decision to have external beam therapy. He first Had a Lupron injection on 12/01/2016. This was given by our office 22.5 mg IM. The plan is to continue hormone suppression for a total of 28 months. He received Lupron 45 mg IM on 03/22/2017. He then had gold fiducial markers placed at Dr. Sanford office. He had a CT simulation and then received radiation Therapy with IMRT/IGRT VMAT. He received 7740 cGy. this was completed 2016. Interim History He has been doing well over the past 6 months from urinary standpoint. His AUA score did go up. Is now at 8. His score had been lower when he was on Flomax. He was able to discontinue the medication. He completed and expanded prostate cancer index composite for clinical practice and gave a score of 2 of 12 and urinary incontinence symptoms. He gave a score of 2 of 12 and urinary irritation symptoms. He gave a score of 0 12 and bowel symptoms. He gives score of 8 of 12 and sexual symptoms. He gave a score of 6 of 12 and hormonal vitality symptoms. His total was 18 of 20. He had a PSA September 25, 2017. That was 0.036. He has continued on the hormone suppression. His main side effect is hot flashes. These are especially worse at night. Allergies Coded Allergies: Statins (Verified Adverse Reaction, Intermediate, MYALGIA, 02/19/17) Home Medications Scheduled Aspirin (Chewable Aspirin), 81 MG PO DAILY Metoprolol Succinate (Toprol Xl), 25 MG PO DAILY Multivitamin (Multivitamin), 1 TAB PO DAILY Nitroglycerin (Nitrostat), 0.4 MG UT PRN [id number] Ethyl Esters (Tyro-3), 2 CAP PO BID Omeprazole (Prilosec), 20 MG PO DAILY Review of Systems Gastrointestinal: Symptoms: WNL GI Comments: bloating and gas, occasional acid reflux pm Oral: Symptoms: No Problems Respiratory: Symptoms: WNL Urinary: Symptoms: WNL Comments: some urgency Physical Exam Vital Signs Date Time Temp Pulse Resp B/P (MAP) Pulse Ox O2 Delivery O2 Flow Rate FiO2 03/26/18 13:50 36.6 58 18 137/75 93 Fatigue: None General Appearance: no apparent distress Eyes: normal inspection, EOMI ENT: normal ENT inspection, hearing grossly normal Respiratory/Chest: lungs clear, no respiratory distress, no accessory muscle use Cardiovascular: regular rate, rhythm, no gallop, no murmur Abdomen: non tender, soft, no organomegaly Extremities: no pedal edema Neurologic/Psychiatric: no motor/sensory deficits, alert, normal mood/affect Skin: warm/dry Pain Management Patient Reports Pain: No Pain Location: None Patient Preferred Pain Scale: 0 - 10 Initial Pain Intensity: 0.0 Pain Management Plan He denies pain therefore requires no pain management. Laboratory Laboratory Results: pending Pathology Pathology Results: were reviewed, and pertinent findings noted in HPI Imaging Imaging Studies: not applicable Assessment & Plan Plan: The patient is also seen today by Dr. Lang. The PSA was drawn and he will be notified as to the results. The hormone suppression was discussed. He is going to continue on hormone suppression. He will be given Lupron 45 mg IM today. For the hot flashes he is given a prescription for Effexor. This is 35 mg 1 p.o. twice daily. I have asked him to take just 1 daily to start. The hot flashes are worse at night. He is going to take 1 at bedtime. If this is enough to relieve his symptoms he will just continue on the 1 pill. If he feels a would benefit from taking it twice a day he may take it twice a day. We asked him to return to our office in 6 months. He will be due again at that time for Lupron. Assessment & Plan (Attending) I agree with note created by Araseli Johnston PA-C. I reviewed the patient's chart and information with her. I have examined and evaluated the patient. I reviewed relevant clinical information and answered the patient's and/or family' s questions. SENIOR INTERACTIVE DEVELOPER Total Time In Follow-Up I spent 20 minutes speaking to the patient in performing examination. I spent 15 minutes reviewing information and completing this note. [place] Total Time (Attending) In Follow-Up I spent 15 minutes examining and counseling the patient. SENIOR INTERACTIVE DEVELOPER Copy To Taryn Sanford MD; Zbigniew Caceres D.O.
== END | disposition home or self-care (01) ==
LOC: C.ONC 13:39
PROVIDERS: ATTEND Physician Assistant Medical
DX: Z51.0 Encounter for antineoplastic radiation therapy (principal); C61 Malignant neoplasm of prostate